=== PATIENT | female | born 1990 | race Asian ===

== ENCOUNTER 2016-08-26 16:12 | Emergency (ER) | payer OTHER ==
[2016-08-26 16:20] VITALS: BP 113/65; PULSE 77; TEMP 97.7; BMI 22.6
[2016-08-26] MEDS ORDERED: DIPHTH,PERTUSS(ACELL),TET 0.5 ML DISP.SYRIN IM ONE (17:04)
--- NOTE | 2016-08-26 17:15 | PDOC ---
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 Reports assisting a patient with insulin injection and "scraped her right thumb on a needle "patient states that she did have gloves on however noticed some bleeding after taking the glove off. Sent to the ER for evaluation. No visible puncture wound. Past Medical History: Denies. Allergies: No known allergies Medications: None Family History: Non-contributory Social History: Denies smoking, alcohol use, or IVDU Review of Systems GENERAL/CONSTITUTIONAL: No fever or chills. No weakness. No weight change. SKIN : No open areas. No visible puncture wound. Physical Exam: GENERAL: The patient is awake, alert, and fully oriented, in no acute distress. SKIN: Warm, Dry, normal turgor, no rashes or lesions noted. No puncture wound visible. 08/26/16 17:31 Past History - Past Medical History Allergies/Adverse Reactions: Allergies No Known Allergies Allergy (Verified 08/26/16 16:20) Home Medications: Ambulatory Orders NK [No Known Home Medication] 08/26/16 - Social History Smoking Status: Never smoked *Physical Exam - Vital Signs Last Vital Signs Temp Pulse Resp BP Pulse Ox 97.7 F 77 18 113/65 100 08/26/16 16:16 08/26/16 16:16 08/26/16 16:16 08/26/16 16:16 08/26/16 16:16 Medical Decision Making - Medical Decision Making 08/26/16 17:32 A/P: Patient with puncture wound, questionable to right thumb. Spoke to [employer]punch operators supervisor Rufina at [phone] day follow-up in our occupational medicine department, she is requesting full set of labs to be drawn and Boostrix given. Labs sent, to follow up at occupational medicine. Patient is refusing the PEP. Patient made aware of what can happen if the source is positive, risks versus benefits of taking medication discussed, she verbalized understanding and continues to refuse. *DC/Admit/Observation/Transfer Diagnosis at time of Disposition: Needle stick injury of finger Qualifiers: Encounter type: initial encounter Qualified Code(s): S61.239A - Puncture wound without foreign body of unspecified finger without damage to nail, initial encounter; W27.3XXA - Contact with needle (sewing), initial encounter - Discharge Dispostion Disposition: HOME Condition at time of disposition: Good Admit: No - Referrals Referrals: Nikia Nguyen MD [Primary Care Provider] - - Patient Instructions Printed Discharge Instructions: How to Handle Body Fluid Exposure -- Non- Healthcare Worker (At Home, [facility]gi Additional Instructions: Please follow-up with occupational medicine on the first floor of [facility], please call to make an appointment [phone] - Post Discharge Activity Work/School Note: Back to Work
[2016-08-26 17:49] LABS: BASOPHIL 0.7 % (0-2.0); MCH 27.8 pg (25.7-33.7); MCHC 33.1 g/dl (32.0-36.0); MEAN CELL VOLUME 83.9 fl (80-96); MEAN PLT VOLUME 11.4 fl (7.5-11.1); NEUTROPHILS 52.4 % (42.8-82.8); PLATELET COUNT 210 K/MM3 (134-434); RDW 12.8 % (11.6-15.6)
[2016-08-26 17:59] LABS: ALBUMIN 4.5 g/dl (3.4-5.0); ANION GAP 11 (8-16); BILIRUBIN,TOTAL 0.8 mg/dL (0.2-1.0); CALCIUM 9.6 mg/dL (8.5-10.1); CHOLESTEROL 167 mg/dL (50-200); CO2 26 mmol/L (21-32); CREATININE 0.4 mg/dL (0.55-1.02); GLUCOSE,RANDOM 83 mg/dL (74-106); LDH 133 U/L (84-246); PHOSPHOROUS 3.6 mg/dL (2.5-4.9); SGOT/AST 12 U/L (15-37); SGPT/ALT 20 U/L (12-78); TOT PROT 7.9 g/dl (6.4-8.2)
[2016-08-26 18:00] LABS: ALK PHOS 50 U/L (45-117)
[2016-08-26 19:12] LABS: HIV 1 & 2 AB NEGATIVE; HIV 1 AGp24 NEGATIVE
[2016-08-29 14:14] LABS: HEP B SURFACE AB Reactive (.)
== END 2016-08-26 17:55 | disposition home or self-care (01) ==
LOC: JERFT 16:12
PROC: 3E0234Z Introduction of Serum, Toxoid and Vaccine into Muscle, Percutaneous Approach (ICD-10-PCS; principal; 2016-08-26)
DX: S61.031A Puncture wound without foreign body of right thumb without damage to nail, initial encounter (principal); W46.1XXA Contact with contaminated hypodermic needle, initial encounter; Y93.F9 Activity, other caregiving; Y92.128 Other place in nursing home as the place of occurrence of the external cause; Y99.0 Civilian activity done for income or pay
CPT/HCPCS: 36415; 80053; 82465; 82977; 83615; 84100; 84478; 84550; 85025; 86704; 86706; 87340; 87389; 90715; 99282-25